=== PATIENT | female | born 2000 | race Caucasian/White ===

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

== ENCOUNTER → 2022-05-01 | Outpatient (CLI) | payer BC | LOC: M CLY 15:16 | PROVIDERS: ATTEND Family Medicine | DX: M79.605 Pain in left leg (principal); M79.604 Pain in right leg ==

== ENCOUNTER → 2022-09-24 | Outpatient (REF) | payer BC ==
[2022-09-24 17:59] LABS: MEAN CORPUSCULAR HEMOGLOBIN 26.4 pg (27.0-33.0); MEAN CORPUSCULAR HGB CONC 31.7 g/dl (32.0-36.5); MEAN CORPUSCULAR VOLUME 83.2 fl (80.0-96.0); PLATELET COUNT, AUTOMATED 268 10^3/uL (150-450); RED BLOOD COUNT 4.93 10^6/uL (4.00-5.40); WHITE BLOOD COUNT 6.8 10^3/uL (4.0-10.0)
[2022-09-24 18:19] LABS: THYROID STIMULATING HORMONE 1.313 uIU/ML (0.48-4.17)
[2022-09-24 18:23] LABS: FREE T4 1.04 NG/DL (0.83-1.43)
[2022-09-24 18:25] LABS: ALBUMIN 4.3 G/DL (3.2-5.2); ALKALINE PHOSPHATASE 68 U/L (46-116); ALT/SGPT 18 U/L (7.0-40); AST/SGOT 18 U/L (<34); BILIRUBIN,TOTAL 0.5 MG/DL (0.3-1.2); BLOOD UREA NITROGEN 17 MG/DL (9-23); CALCIUM LEVEL 9.2 MG/DL (8.5-10.1); CARBON DIOXIDE LEVEL 26 MMOL/L (20-31); CHLORIDE LEVEL 106 MMOL/L (98-107); CREATININE FOR GFR 0.81 MG/DL (0.55-1.30); GLUCOSE, FASTING 76 MG/DL (60-100); IRON (FE) 56 UG/DL (50-170); POTASSIUM SERUM 4.1 MMOL/L (3.5-5.1); SODIUM LEVEL 140 MMOL/L (136-145); TOTAL PROTEIN 7.1 G/DL (5.7-8.2)
== END ==
LOC: M SFHCCLAY 11:55
PROVIDERS: ATTEND Family Medicine
DX: I45.6 Pre-excitation syndrome (principal); R00.0 Tachycardia, unspecified

== ENCOUNTER → 2022-11-23 | Outpatient (CLI) | payer BC ==
[2022-11-24 01:10] LABS: C REACTIVE PROTEIN QUANTITATIV < 0.40 MG/DL (<1.0)
[2022-11-24 01:12] LABS: RHEUMATOID FACTOR QUANT < 3.5 IU/ML (<14)
[2022-11-24 20:11] LABS: ANA (HEP2) Negative (.); CYCLIC CITRULLINATED PEPTIDE 5 units (0-19)
== END ==
LOC: M LAB 10:24
PROVIDERS: ATTEND Family Medicine
DX: M79.604 Pain in right leg (principal); M79.605 Pain in left leg

== ENCOUNTER → 2024-04-07 | Outpatient (REF) | payer BC ==
[2024-04-08 13:48] LABS: Trichomonas vaginalis (AMP) NOT DETECTED (NEGATIVE)
[2024-04-08 14:11] LABS: GC DNA AMPLIFICATION NEGATIVE (NEGATIVE)
[2024-04-10 16:42] LABS: HPV APTIMA Detected (Not Detected)
== END ==
LOC: M SFHCCLAY 11:40
PROVIDERS: ATTEND Nurse Practitioner Family
DX: Z12.4 Encounter for screening for malignant neoplasm of cervix (principal); Z77.9 Other contact with and (suspected) exposures hazardous to health
CPT/HCPCS: 87070; 87624; 87661; 87810; 87850; G0123

== ENCOUNTER → 2025-01-21 | Outpatient (REF) | payer BC ==
[2025-01-22 14:45] LABS: Trichomonas vaginalis (AMP) NOT DETECTED (NEGATIVE)
[2025-01-22 15:09] LABS: GC DNA AMPLIFICATION NEGATIVE (NEGATIVE)
[2025-01-26 15:08] LABS: HPV APTIMA Detected (Not Detected)
== END ==
LOC: M SFHCCLAY 15:25
PROVIDERS: ATTEND Nurse Practitioner Family
DX: Z12.4 Encounter for screening for malignant neoplasm of cervix (principal)
CPT/HCPCS: 87070; 87624; 87661; 87810; 87850; G0123

== ENCOUNTER → 2025-01-26 | Outpatient (CLI) | payer BC ==
[2025-01-26 12:41] LABS: BASO # 0.0 10^3/uL (0.0-0.2); BASO % 0.4 % (0.0-1.0); EOS # 0.2 10^3/uL (0.0-0.5); EOS % 2.2 % (0.0-3.0); LYMPH # 3.0 10^3/uL (1.5-5.0); LYMPH % 43.1 % (24.0-44.0); MONO # 0.6 10^3/uL (0.0-0.8); MONO % 8.6 % (2.0-8.0); NEUTROPHILS # 3.2 10^3/uL (1.5-8.5); NEUTROPHILS % 45.4 % (36.0-66.0); PLATELET COUNT, AUTOMATED 212 10^3/uL (150-450)
[2025-01-26 15:36] LABS: LUTEINIZING HORMONE 17.3 mIU/ML
[2025-01-26 15:37] LABS: PROLACTIN 30.32 NG/ML
[2025-01-26 15:38] LABS: ALT/SGPT 13 U/L (7.0-40); AST/SGOT 20 U/L (<34); CALCIUM LEVEL 9.6 MG/DL (8.5-10.1); CARBON DIOXIDE LEVEL 28 MMOL/L (20-31); CHLORIDE LEVEL 102 MMOL/L (98-107); CREATININE FOR GFR 0.88 MG/DL (0.55-1.30); GLOMERULAR FILTRATION RATE > 90.0 (>60); POTASSIUM SERUM 4.1 MMOL/L (3.5-5.1); SODIUM LEVEL 139 MMOL/L (136-145); TESTOSTERONE 43 NG/DL (14-76)
[2025-01-27 08:08] LABS: FREE ANDROGEN INDEX 6.8 (0.4-8.4); SEX HORM BINDING GLOB 30.7 nmol/L (24.6-122.0); TESTOSTERONE 60 ng/dL (13-71)
[2025-01-27 11:06] LABS: DEHYDROEPIANDROSTERONE SULFATE 276 mcg/dL (14-349)
== END ==
LOC: M WUC 08:19
PROVIDERS: ATTEND Nurse Practitioner Family
DX: N91.2 Amenorrhea, unspecified (principal); N94.89 Other specified conditions associated with female genital organs and menstrual cycle

== ENCOUNTER → 2025-02-10 | Outpatient (CLI) | payer BC | LOC: M RAD 13:01 | PROVIDERS: ATTEND Nurse Practitioner Family | DX: N91.2 Amenorrhea, unspecified (principal); N94.89 Other specified conditions associated with female genital organs and menstrual cycle; Z97.5 Presence of (intrauterine) contraceptive device ==